=== PATIENT | female | born 2005 | race Caucasian/White ===

== ENCOUNTER → 2025-05-18 15:43 | Outpatient (REF) | payer OTHER, SELFPAY | LOC: RAD 15:43 | PROVIDERS: ATTENDING PHYSICIAN Nurse Practitioner Adult Health | DX: S89.91XA Unspecified injury of right lower leg, initial encounter (principal) | CPT/HCPCS: 73564 ==

== ENCOUNTER → 2025-06-07 11:11 | Outpatient (REF) | payer OTHER, SELFPAY | LOC: PAVMRI 11:11 | PROVIDERS: ATTENDING PHYSICIAN Orthopaedic Surgery; FAMILY PHYSICIAN Nurse Practitioner Adult Health | DX: M23.91 Unspecified internal derangement of right knee (principal) | CPT/HCPCS: 73721 ==